=== PATIENT | female | born 1995 | race American Indian/Alaskan Native ===

== ENCOUNTER 2017-06-21 21:31 | Emergency (ER) | payer SELFPAY ==
--- NOTE | 2017-06-22 00:05 | XRay Report ---
FINAL REPORT EXAM: XR SPINE SACRUM/COCCYX 2+V HISTORY: COCCYX PAIN TECHNIQUE: Sacrum and coccyx three views PRIORS: None. FINDINGS: There is some spinal dysraphism present. There is incomplete closure of posterior elements lowest lumbar levels seen. There is also some dysraphism noted lower part of the sacrum with incomplete closure of posterior elements. No definitive coccygeal displacement or fracture is identified. The SI joints are unremarkable. Visualized portions of the bony pelvis are unremarkable. 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 No acute abnormality seen
[2017-06-22] MEDS ORDERED: ULTRAM PO ONE (08:01)
--- NOTE | 2017-06-22 08:58 | Emergency Department Report ---
ED General Adult HPI - General Chief complaint: Pain General Stated complaint: BUTT BONE PAINFUL Source: patient Mode of arrival: Ambulatory Limitations: No Limitations - History of Present Illness Initial comments: 21 year old female presents to ED with tailbone pain. patient denies injury or fall. patient states she woke up with tailbone pain. patient denies dysuria, vaginal discharge, vaginal bleeding, hematuria, diarrhea, constipation, rectal bleeding. patient denies . patient is stable, neurologically intact and in no acute distress. -: Sudden Location: buttocks Radiation: non-radiation Severity scale (0 -10): 6 Quality: constant Consistency: constant Improves with: none Worsens with: none Associated Symptoms: denies other symptoms - Related Data Previous Rx's Medication Instructions Recorded Last Taken Type Cyclobenzaprine [Flexeril 10mg] 10 mg PO TID PRN #14 tablet 11/15/14 Unknown Rx Ibuprofen [Motrin] 800 mg PO Q8H PRN #30 tablet 11/15/14 Unknown Rx Fluconazole [Diflucan TAB] 200 mg PO QDAY #2 tablet 05/27/16 Unknown Rx metroNIDAZOLE [Flagyl TAB] 500 mg PO Q12HR #14 tab 05/27/16 Unknown Rx Meloxicam [Mobic] 7.5 mg PO QDAY #5 tablet 06/22/17 Unknown Rx methOCARBAMOL [Robaxin TAB] 500 mg PO TID #15 tab 06/22/17 Unknown Rx Allergies Allergy/AdvReac Type Severity Reaction Status Date / Time No Known Allergies Allergy Verified 07/25/16 09:04 ED Review of Systems ROS: Stated complaint: BUTT BONE PAINFUL Other details as noted in HPI Constitutional: denies: chills, fever Eyes: denies: eye pain, eye discharge, vision change ENT: denies: ear pain, throat pain Respiratory: denies: cough, shortness of breath, wheezing Cardiovascular: denies: chest pain, palpitations Endocrine: no symptoms reported Gastrointestinal: denies: abdominal pain, nausea, diarrhea Genitourinary: denies: urgency, dysuria, discharge Musculoskeletal: arthralgia. denies: back pain, joint swelling Skin: denies: rash, lesions Neurological: denies: headache, weakness, paresthesias Psychiatric: denies: anxiety, depression Hematological/Lymphatic: denies: easy bleeding, easy bruising ED Past Medical Hx - Past Medical History Previous Medical History?: No - Surgical History Past Surgical History?: No - Social History Smoking Status: Never Smoker Substance Use Type: None - Medications Home Medications: Home Medications Medication Instructions Recorded Confirmed Last Taken Type Cyclobenzaprine [Flexeril 10mg] 10 mg PO TID PRN #14 tablet 11/15/14 Unknown Rx Ibuprofen [Motrin] 800 mg PO Q8H PRN #30 tablet 11/15/14 Unknown Rx Fluconazole [Diflucan TAB] 200 mg PO QDAY #2 tablet 05/27/16 Unknown Rx metroNIDAZOLE [Flagyl TAB] 500 mg PO Q12HR #14 tab 05/27/16 Unknown Rx Meloxicam [Mobic] 7.5 mg PO QDAY #5 tablet 06/22/17 Unknown Rx methOCARBAMOL [Robaxin TAB] 500 mg PO TID #15 tab 06/22/17 Unknown Rx ED Physical Exam - General Limitations: No Limitations General appearance: alert, in no apparent distress - Head Head exam: Present: atraumatic, normocephalic - Eye Eye exam: Present: normal appearance - ENT ENT exam: Present: mucous membranes moist - Neck Neck exam: Present: normal inspection - Respiratory Respiratory exam: Present: normal lung sounds bilaterally. Absent: respiratory distress - Cardiovascular Cardiovascular Exam: Present: regular rate, normal rhythm. Absent: systolic murmur, diastolic murmur, rubs, gallop - GI/Abdominal GI/Abdominal exam: Present: soft, normal bowel sounds. Absent: distended, tenderness, guarding - Rectal Rectal exam: Present: deferred - Extremities Exam Extremities exam: Present: normal inspection - Back Exam Back exam: Present: normal inspection, full ROM. Absent: tenderness - Neurological Exam Neurological exam: Present: alert, oriented X3, normal gait - Psychiatric Psychiatric exam: Present: normal affect, normal mood - Skin Skin exam: Present: warm, dry, intact, normal color. Absent: rash ED Course Vital Signs 06/21/17 06/22/17 22:02 08:19 Temperature 98.5 F Pulse Rate 95 H Respiratory 20 18 Rate Blood Pressure 123/78 O2 Sat by Pulse 99 Oximetry ED Medical Decision Making - Radiology Data Radiology results: report reviewed XR sacrum/coccyx: Spinal dysraphism present. No displacement or fracture identified. SI joints are unremarkable. Bony pelvis is unremarkable. No acute abnormality seen. - Medical Decision Making 21 year old female presents to ED with tail bone pain. patient states she woke up with tail bone pain last night. patient has no acute findings on imaging. patient has decreased pain after pain medication and will be referred to ortho MD. patient is stable, neurologically intact and in no acute distress. patient has negative preg test. Critical care attestation.: If time is entered above; I have spent that time in minutes in the direct care of this critically ill patient, excluding procedure time. ED Disposition Clinical Impression: Coccyx pain Disposition: TO HOME OR SELFCARE Is pt being admited?: No Does the pt Need Aspirin: No Condition: Stable Prescriptions: Meloxicam [Mobic] 7.5 mg PO QDAY #5 tablet methOCARBAMOL [Robaxin TAB] 500 mg PO TID #15 tab Referrals: PRIMARY CAREMD [Primary Care Provider] - 3-5 Days WM ANDERSON MD [Staff Physician] - 3-5 Days
[2017-06-22 09:03] VITALS: BP 105/62
== END 2017-06-22 09:03 | disposition home or self-care (01) ==
LOC: ED 21:31
DX: M54.5 Low back pain (principal)
CPT/HCPCS: 36415; 72220; 84703